=== PATIENT | female | born 1970 | race Caucasian/White ===

== ENCOUNTER 2020-02-22 13:08 | Emergency (ER) | payer BC, SELFPAY ==
[2020-02-22 13:26] VITALS: BP 149/58; PULSE 69; RESP 14; TEMP 36.4; O2SAT 100
--- NOTE | 2020-02-22 15:06 | ED.GENADULT ---
HPI - General Adult General Chief complaint: Wound/Laceration Stated complaint: lac Time Seen by Provider: 02/22/20 13:16 Source: patient Mode of arrival: ambulatory Limitations: no limitations History of Present Illness HPI narrative: Patient is a 49-year-old female who presents to emergency department for evaluation of right hand pain noting that she cut the hand just prior to arrival with a sharp knife patient notes mild aching pain worse with activity and movement. Patient notes immunizations to be up-to-date specifically tetanus. Injury occurred just prior to arrival Related Data Home Medications Medication Instructions Recorded Confirmed No Home Medications 02/22/20 02/22/20 Allergies Allergy/AdvReac Type Severity Reaction Status Date / Time No Known Allergies Allergy Unknown Verified 02/22/20 13:28 Review of Systems Review of Systems: Narrative: CONSTITUTIONAL: Denies fever, chills, or sweats. SKIN: Denies true centimeter superficial linear laceration right hand dorsal surface along the base of the first digit MUSCULOSKELETAL: Denies back pain, joint pain, or myalgia. NEUROLOGIC: Denies numbness, tingling PMFSH Family History Family History (Updated 03/10/16 @ 23:21 by DOCTOR UNKNOWN) Mother Patient's mother is in good health Father Patient's father is in good health Sibling Patient's sister is in good health Social History Social History Smoking status: Never smoker Alcohol intake: never Gender identity (if verbalized by the patient): Female Exam Narrative: Exam Narrative: GENERAL: Well-appearing, well-nourished, and in no acute distress. HEAD: Normocephalic, atraumatic. EYES: PERRLA and EOMI. ENT: Nares clear, no rhinorrhea or epistaxis. Mucous membranes moist. EXTREMITIES: Normal range of motion. No edema. SKIN: Warm, dry, no rash. 2 cm superficial linear laceration dorsal surface right hand along the first digit NEURO: No focal deficits. Alert and oriented x3. Neurovascularly intact PSYCH: Normal mood and affect. Course Course Emergency Course: Patient in the room aware of case findings treatment plan and diagnosis agreeing to follow-up as directed or to return if symptoms worsen or concerns eye closure in the emergency department Vital Signs Vital signs: Vital Signs Temperature 97.6 F 02/22/20 13:26 Pulse Rate 69 07/12/20 13:26 Respiratory Rate 14 02/22/20 13:26 Blood Pressure 149/58 H 02/22/20 13:26 Pulse Oximetry 100 02/22/20 13:26 Temperature 97.6 F 02/22/20 13:26 Pulse Rate 69 02/22/20 13:26 Respiratory Rate 14 02/22/20 13:26 Blood Pressure 149/58 H 02/22/20 13:26 Pulse Oximetry 100 02/22/20 13:26 Procedures Laceration Laceration 1: Date: 02/22/20 Time: 15:10 Site: upper extremity Size (cm): 2 Description: linear Depth: simple, single layer Local Anesthetic: lidocaine 1% Pre-repair: wound explored, irrigated and irrigated extensively ====== Skin Level ====== Skin layer closed with: nylon Size (cm): 5-0 Number of sutures: 4 ====== Subcutaneous Layer ====== ====== Muscle Layer ====== ====== Tendon Layer ====== Dressing: Intact antibiotic ointment nonadhesive 4 x 4 and Coban placed post procedure Medical Decision Making MDM Narrative Medical decision making narrative: Patients injury or pain is consistent with musculoskeletal etiology. No signs of neurological or vascular compromise on exam. Compartments and tisues are soft without signs of compartment syndrome. Pain is felt appropriate for further evaluation on an outpatient basis. Vital Signs Vital Signs: Vital Signs Temperature 97.6 F 02/22/20 13:26 Pulse Rate 69 02/22/20 13:26 Respiratory Rate 14 02/22/20 13:26 Blood Pressure 149/58 H 02/22/20 13:26 Pulse Oximetry 100 02/22/20 13:26 Temperat
[2020-02-22 15:29] VITALS: BP 160/93; PULSE 91; RESP 18; O2SAT 95
== END 2020-02-22 15:30 | disposition home or self-care (01) ==
PROVIDERS: Emergency Provider Emergency Medicine
DX: S61.411A Laceration without foreign body of right hand, initial encounter (principal); W26.0XXA Contact with knife, initial encounter
CPT/HCPCS: 12001; 99282

== ENCOUNTER 2021-01-19 10:59 | Outpatient (CLI) | payer BC, SELFPAY ==
--- NOTE | 2021-01-19 11:21 | ECG_ITS ---
Measurements Intervals [place] Rate: 71 P: 67 [place]: 123 QRS: 30 QRSD: 85 T: 32 QT: 385 QTc: 420 Interpretive Statements SINUS RHYTHM NORMAL ECG Electronically Signed On 01-19-2021 12:12:26 CDT by Karthikeyan Durán D.O.
[2021-01-19 11:26] LABS: Hematocrit 40.2 % (37.0-47.0); Hemoglobin 13.9 g/dL (12.0-15.0)
[2021-01-19 11:31] LABS: Urine Cotinine NEGATIVE
[2021-01-19 11:43] LABS: Hemoglobin A1C 5.1 % (<5.7)
[2021-01-19 11:46] LABS: Albumin Level 4.8 g/dL (3.5-5.1); Estimated Glomerular Filt Rate > 60; Glucose 96 mg/dL (65-105)
== END 2021-01-19 11:00 | disposition home or self-care (01) ==
PROVIDERS: Visit Provider Orthopaedic Surgery
DX: M16.11 Unilateral primary osteoarthritis, right hip (principal); Z01.818 Encounter for other preprocedural examination
CPT/HCPCS: 80307; 82040; 82565; 82947; 83036; 85014; 85018; 93005

== ENCOUNTER 2021-03-14 12:44 | Outpatient (CLI) | payer BC, SELFPAY ==
[2021-03-14 08:47] LABS: Basophils Absolute Auto 0.1 K/mm3 (0.0-0.1); Basophils Percent Auto 1.2 % (0.2-1.2); Eosinophils Absolute Auto 0.2 K/mm3 (0-0.3); Eosinophils Percent Auto 3.2 % (0-4.4); Hemoglobin 14.2 g/dL (12.0-15.0); Immature Granulocyte Absolute 0.03 K/mm3 (0.00-0.031); Immature Granulocyte Percent A 0.6 % (0-0.5); Lymphocytes Absolute Auto 1.54 K/mm3 (0.9-3.2); Lymphocytes Percent Auto 30.9 % (18.3-44.2); Mean Corpuscular HGB Conc 34.6 g/dl (32-36); Mean Corpuscular Hemoglobin 30.2 pg (26-34); Mean Corpuscular Volume 87.2 fl (80-100); Mean Platelet Volume 9.7 fl (7.4-10.4); Monocytes Absolute Auto 0.4 K/mm3 (0.1-0.6); Neutrophils Absolute Auto 2.8 K/mm3 (1.3-6.7); Neutrophils Percent Auto 56.1 % (45.5-73.1); Platelet Count Result 249 k/mm3 (150-375); Red Cell Distribution Width 11.9 % (11.5-14.5)
[2021-03-14 08:57] LABS: Albumin Level 4.6 g/dL (3.5-5.1); Estimated Glomerular Filt Rate > 60; Glucose 97 mg/dL (65-110)
[2021-03-14 09:25] LABS: Urine Cotinine NEGATIVE
== END 2021-03-14 12:45 | disposition home or self-care (01) ==
LOC: ANHSURGERY 04-22 12:44
PROVIDERS: Visit Provider Orthopaedic Surgery
DX: Z01.812 Encounter for preprocedural laboratory examination (principal); M16.11 Unilateral primary osteoarthritis, right hip; Z51.81 Encounter for therapeutic drug level monitoring; Z79.899 Other long term (current) drug therapy
CPT/HCPCS: 80307; 82040; 82565; 82947; 85025; 87081

== ENCOUNTER → 2021-03-29 04:54 | Outpatient (CLI) | payer BC, SELFPAY ==
[2021-03-29 21:10] LABS: SARS-CoV-2 RNA PCR Negative
== END ==
PROVIDERS: Visit Provider Orthopaedic Surgery
DX: Z01.812 Encounter for preprocedural laboratory examination (principal); Z20.822 Contact with and (suspected) exposure to COVID-19
CPT/HCPCS: C9803; U0003; U0005

== ENCOUNTER 2021-04-01 05:01 | Day surgery (SDC) | payer BC, SELFPAY ==
[2021-03-14 08:08] VITALS: BP 156/108; PULSE 78; RESP 18; TEMP 36.5; O2SAT 99; BMI 25.9
[2021-03-14 08:10] VITALS: BP 158/90
[2021-03-14 08:30] VITALS: BP 160/100
--- NOTE | 2021-03-31 13:44 | WPDANESEPPF ---
Anes - Initial Pre Proc Eval Procedure: Operation Date: 04/01/21 07:30 Proposed Procedures p Right Total Hip Arthroplasty - Harish Husain MD Date/Time: 03/31/21 13:44 Surgeon: Harish Husain MD Pre Op Diagnosis: primary OA right hip Patient Data Age: 50 Gender: F Height: 1.78 m Weight: 82.1 kg Last Vital Signs Temp 36.5 C 03/14/21 08:08 Pulse 78 03/14/21 08:08 Resp 18 03/14/21 08:08 BP 160/100 H 03/14/21 08:30 Pulse Ox 99 03/14/21 08:08 Allergies Allergy/AdvReac Type Severity Reaction Status Date / Time No Known Allergies Allergy Unknown Verified 04/01/21 06:22 Home Medications Medication Instructions Recorded Confirmed Type ibuprofen [Ibuprin] 400 mg PO BID PRN 03/14/21 04/01/21 History tramadol 50 mg tablet 50 mg PO Q6H PRN #30 tablet 03/14/21 04/01/21 Rx Patient hx anesthesia problems: none Family hx anesthesia problems: none PMFSH Past Medical History Medical History (Updated 03/31/21 @ 13:44 by Bill Schwartz MD) Arthritis of right hip Asthma Migraine Family History Family History Mother Patient's mother is in good health Father Patient's father is in good health Sibling Patient's sister is in good health Social History Social History Smoking status: Never smoker Second hand tobacco smoke exposure: No Alcohol intake: current Drinks per week: 2 Substance use: never Substance use type: does not use Living arrangements: with family Gender identity (if verbalized by the patient): Female Spiritual care concerns: No Anes - Eval Final PreProcedure Day of Procedure 03/31/21 13:44 Patient weight: overweight Heart: regular rate and rhythm Lungs: clear to auscultation and normal air movement Airway: Mallampati scale class II Neurological: alert and oriented Last oral intake: >/= 8 hours ASA classification: II Emergent: no Anesthetic plan: proceed Anesthesia type and monitoring: general LMA and ETT Informed Consent: The patient's anesthetic plan and its attendant risks and benefits were discussed with the patient/family/POA. Questions were solicited and answers provided to the satisfaction of the patient/family/POA.
[2021-04-01] VITALS (13 sets, daily range): BP systolic 120–158; BP diastolic 69–104; PULSE 75–99; RESP 10–18; TEMP 35.8–36.5; O2SAT 97–100
--- NOTE | ~2021-04-01 | XR_ITS ---
EXAMINATION: XR hip RT min 2V DATE: 04/01/2021 10:19 INDICATION: Right hip arthroplasty. Postop. TECHNIQUE: 2 views of right hip were obtained. COMPARISON: Right hip radiographs 05/14/2021 FINDINGS: There is a total right hip arthroplasty in near-anatomic alignment. No fracture. IMPRESSION: 1. Total right hip arthroplasty in near-anatomic alignment. Reviewed, dictated and finalized at location B.
[2021-04-01] MEDS: ACETAMINOPHEN 500 MG TABLET 1000 MG PO (06:26)
[2021-04-01] MEDS: LACTATED RINGERS 1,000 ML 30 ML IV CONT ×2 (06:44→10:07)
[2021-04-01] MEDS: TRANEXAMIC ACID 1,000MG/ISO100 1,000 MG/100 ML BAG 200 MG IVPB (07:17)
--- NOTE | 2021-04-01 07:20 | WPDHPUPDATE1 ---
History and Physical Update Update Date/Time: 04/01/21 07:20 History and Physical has been reviewed, including an updated exam of the patient. There are NO changes in the patient's condition. Risks, benefits, and alternatives have been discussed and questions answered. Patient agrees to proceed with procedure.
[2021-04-01] MEDS: ceFAZolin 2 GM/D5W 50 ML 2 GM/50 ML BAG IVPB ×3 (07:32→22:51)
[2021-04-01] MEDS: fentaNYL CITRATE INJ (*CRX) 100 MCG/2 ML VIAL 25 MCG IV PUSH ×8 (10:28→11:04)
[2021-04-01 11:55] LABS: Hematocrit 36.3 % (37.0-47.0); Hemoglobin 12.2 g/dL (12.0-15.0)
--- NOTE | 2021-04-01 12:19 | ADMGEN ---
This patient, Noemy San, was admitted to 2 Medical Room 259-. Patient/family oriented to hospital policies and general routines including ID bracelet, bed and alarms, visiting hours, pain management, procedures, bathroom and other care routines, personal items, smoking policy, room service/diet, and visiting hours. Information on how to activate the Rapid Response Team has been discussed. Patient/Family are encouraged to report perceived risks to care and to ask questions if they do not understand what they are told or what they should do.
[2021-04-01] MEDS: CYCLOBENZAPRINE HCL 10 MG TABLET PO (12:30)
[2021-04-01] MEDS: oxyCODONE HCL (*CRX) 5 MG TAB IR PO (14:40)
--- NOTE | 2021-04-01 15:02 | W.PM.PROC2 ---
Procedure Note - Detailed Date of Procedure 04/01/21 Pre-op Diagnosis primary OA right hip Post-op Diagnosis same Procedure Performed Total hip arthroplasty, right. Surgeon Harish Husain MD Software Engineer Advisor Jane Noriega PA-C Anesthesia general Findings Good bone quality. 8mm posterior-inferior degenerative acetabular cyst bone grafted. [place] femoral version approximately 15 degrees. Femur placed at shinnecock version. Acetabular component approximately 20-25 degrees. No impingement with neutral liner. Description of Procedure OPERATIVE DETAILS: The patient was given preoperative antibiotics. A general anesthetic was administered. The patient was carefully placed in the lateral decubitus position on the PEG board. The shoulders and hips were carefully positioned for component and leg length positioning reference. The hip was prepped and draped in the usual sterile fashion. A longitudinal incision was created over the posterior aspect of the greater trochanter. Careful dissection was brought down through the deep fascia with electrocautery. A minimally invasive optimized posterior approach to the hip was performed. The short external rotators and capsule were taken down in an L-shaped capsulotomy. The tissue was tagged for later repair using number 2 high strength suture. The femoral neck was measured and taken in situ. The femoral head was removed. The acetabulum was carefully exposed. The inferior capsule was released. The labrum was resected. The acetabulum was sequentially reamed the intended cup size. The cup was impacted into position with excellent press-fit. Trial liner placed. Typical anatomic landmarks, including the bony contact points as well as the inferior transverse acetabular ligament were used to confirm cup positioning with preoperative templating. Attention was turned to the femur, which was carefully exposed. The hip was reamed and then broached sequentially. Excellent press-fit was obtained with the broach. The hip was trialed. Measurements were utilized, including the lesser trochanter as well as the center of the femoral head and the tip of the trochanter, and excellent assessment of the offset and leg lengths were confirmed. The real component was impacted into position. Trialing confirmed appropriate leg length and offset with soft tissue balancing as well apparent feel of the leg, both at the knee and the heel. Soft tissues were assessed using the the iliotibial band. Reduction of the posterior capsule and external rotators were also used as a secondary assessment. The hip was copiously irrigated with pulsatile lavage antibiotic solution periodically throughout the procedure. The real components were then assembled and reduced. The hip was stable throughout typical maneuvers, including extension, external rotation to 70 degrees, the position of sleep as well as flexion to 90 degrees with internal rotation past 35 degrees. The shake test confirmed stability without impingement. The short external rotators and capsule were repaired back to the posterior trochanter through drill holes. The deep fascia was repaired with running number 2 Quill suture, followed by 0 Stratafix suture and 2-0 Stratafix suture in the dermis. Steri-Strips were placed on the skin, followed by a sterile silver occlusive dressing. There were no complications. Meticulous hemostasis was maintained with the AquaMantys device. The patient was brought to the recovery room in stable condition. There were no complications. Implants The Accolade II hip stem, 127 degree size 4 , was utilized with excellent press-fit. The 50 mm tritanium 2 acetabular component was impacted with excellent press-fit stability. The +4 , 32 mm Biolox ceramic femoral head was utilized. Estimated Blood Loss -350.0 Drains No Pathology none sent Complications No immediate complications Condition stable Disposition PACU
[2021-04-01] MEDS: MELOXICAM 7.5 MG TABLET PO (17:21)
[2021-04-01] MEDS: ASPIRIN 81 MG ENTERIC TABLET PO (17:21)
[2021-04-01] MEDS: DOCUSATE SODIUM 100 MG CAPSULE PO (17:21)
[2021-04-01] MEDS: FAMOTIDINE 20 MG TABLET PO (20:22)
[2021-04-02 00:44] VITALS: BP 128/68; PULSE 80; RESP 16; TEMP 36.7; O2SAT 100
[2021-04-02 05:11] VITALS: BP 134/76; PULSE 87; RESP 16; TEMP 36.4; O2SAT 100
[2021-04-02] MEDS: oxyCODONE HCL (*CRX) 5 MG TAB IR PO (05:38)
[2021-04-02] MEDS: ceFAZolin 2 GM/D5W 50 ML 2 GM/50 ML BAG IVPB (06:09)
[2021-04-02 06:23] LABS: Basophils Percent Auto 0.4 % (0.2-1.2); Eosinophils Percent Auto 0.2 % (0-4.4); Hematocrit 33.1 % (37.0-47.0); Hemoglobin 10.9 g/dL (12.0-15.0); Immature Granulocyte Absolute 0.05 K/mm3 (0.00-0.031); Immature Granulocyte Percent A 0.5 % (0-0.5); Lymphocytes Absolute Auto 2.02 K/mm3 (0.9-3.2); Lymphocytes Percent Auto 22.1 % (18.3-44.2); Mean Corpuscular HGB Conc 32.9 g/dl (32-36); Mean Corpuscular Hemoglobin 29.1 pg (26-34); Mean Corpuscular Volume 88.5 fl (80-100); Mean Platelet Volume 10.5 fl (7.4-10.4); Monocytes Absolute Auto 0.8 K/mm3 (0.1-0.6); Monocytes Percent Auto 8.5 % (2.6-8.5); Neutrophils Absolute Auto 6.2 K/mm3 (1.3-6.7); Neutrophils Percent Auto 68.3 % (45.5-73.1); Platelet Count Result 212 k/mm3 (150-375); Red Blood Count 3.74 M/mm3 (4.2-5.4); Red Cell Distribution Width 11.8 % (11.5-14.5); White Blood Count 9.2 K/mm3 (4.5-10.0)
[2021-04-02 06:34] LABS: Anion Gap 6 mmol/L (8-16); Blood Urea Nitrogen 11 mg/dL (7-17); Calcium 8.9 mg/dL (8.4-10.2); Carbon Dioxide 27 mmol/L (22-30); Chloride 104 mmol/L (98-107); Estimated CRCL calculation 90 ml/min; Estimated Glomerular Filt Rate > 60; Glucose 99 mg/dL (65-110); Potassium 4.3 mmol/L (3.4-5.0); Sodium 137 mmol/L (137-145)
[2021-04-02] MEDS: ASPIRIN 81 MG ENTERIC TABLET PO (08:07)
[2021-04-02] MEDS: MELOXICAM 7.5 MG TABLET PO (08:07)
[2021-04-02] MEDS: DOCUSATE SODIUM 100 MG CAPSULE PO (08:07)
[2021-04-02] MEDS: FAMOTIDINE 20 MG TABLET PO (08:07)
[2021-04-02 09:50] VITALS: BP 123/79; PULSE 82; RESP 16; TEMP 36.2; O2SAT 100
--- NOTE | 2021-04-02 10:58 | PM.DS ---
DS: Admitting Diagnosis Admitting Diagnosis OA Right hip DS: Discharge Diagnosis Discharge Diagnosis (1) Status post total hip replacement, right: Code(s): Z96.641 - Presence of right artificial hip joint Status: Acute Assessment and Plan: Postop day 1: Right total hip arthroplasty. Patient tolerated procedure well. No complications. Pain manageable with pain medication. No numbness or tingling. We had a lengthy discussion regarding postoperative wound care, limitations, expectations, and exercises. Patient shows good understanding. She has had initial physical therapy and is tolerating it well. DVT prophylaxis: 81 mg baby aspirin b.i.d. for 14 days. Short frequent walks. Pain medication: Percocet. Ibuprofen. Patient has followup appointment with Dr. Husain in 3 weeks. DS: Summary Hospital Course Reason for hospitalization: Total hip arthroplasty Hospital Course: Patient tolerated procedure well. Has had initial PT/OT and made good progress. Status at Discharge Functional status at discharge: uses cane/walker Overall status at discharge: patient is progressing back to baseline Time Spent with Patient Time attestation: Total time spent providing and/or coordinating discharge services: 45 minutes Exam Narrative: Overweight 50 y/o female. Resting comfortably in bed. Wearing compression socks bilaterally. Dressing dry and intact with no drainage. Moderate swelling. No ecchymosis. No erythema. No hematoma. Range of motion limited due to pain. Calf nontender. Thigh nontender. Neurologic status intact. No varicosities. Distal pulses palpable. DS: Data Data Completed and Pending Labs on day of discharge: Labs from last 24 hours 04/02/21 04/02/21 04/01/21 05:32 05:32 11:41 WBC 9.2 RBC 3.74 L Hgb 10.9 L 12.2 Hct 33.1 L 36.3 L MCV 88.5 MCH 29.1 MCHC 32.9 RDW 11.8 Plt Count 212 MPV 10.5 H Immature Gran % (Auto) 0.5 Neut % (Auto) 68.3 Lymph % (Auto) 22.1 [place] % (Auto) 8.5 Eos % (Auto) 0.2 Baso % (Auto) 0.4 Lymph # (Auto) 2.02 [place] # (Auto) 0.8 H Eos # (Auto) 0.0 Baso # (Auto) 0.0 Abs Immat Gran (auto) 0.05 H Absolute Neuts (auto) 6.2 Absolute Nucleated RBC 0.0 Nucleated RBC % 0.0 Sodium 137 Potassium 4.3 Chloride 104 Carbon Dioxide 27 Anion Gap 6 L BUN 11 Creatinine 0.70 Estim Creat Clear Calc 90 Estimated GFR > 60 Glucose 99 Calcium 8.9 Blood Type Antibody Screen 04/01/21 06:19 WBC RBC Hgb Hct MCV MCH MCHC RDW Plt Count MPV Immature Gran % (Auto) Neut % (Auto) Lymph % (Auto) [place] % (Auto) Eos % (Auto) Baso % (Auto) Lymph # (Auto) [place] # (Auto) Eos # (Auto) Baso # (Auto) Abs Immat Gran (auto) Absolute Neuts (auto) Absolute Nucleated RBC Nucleated RBC % Sodium Potassium Chloride Carbon Dioxide Anion Gap BUN Creatinine Estim Creat Clear Calc Estimated GFR Glucose Calcium Blood Type O Negative Antibody Screen Negative Discharge Plan Discharge Patient Disposition: Home, Self-Care Discharge Instructions: See instruction sheet Stand Alone Forms: General Discharge Instructions Follow-up/Referrals: Jane Noriega PA [Physician Band Bias Machine Operator] - Discharge Medications: New aspirin 81 mg tablet,delayed release (DR/EC) 81 mg PO BID 14 Days Qty: 28 RF: 0 oxycodone-acetaminophen 5-325 mg tablet 1 - 2 tablet PO Q4-6H MDD 6 PRN (Reason: pain) Qty: 30 RF: 0 Continued tramadol 50 mg tablet 50 mg PO Q6H PRN (Reason: pain) Qty: 30 RF: 0 ibuprofen 200 mg Tablet 400 mg PO BID PRN (Reason: Pain) RF: 0
== END 2021-04-02 12:00 | disposition home or self-care (01) ==
LOC: ANHSURGERY 06:02 → ANH2MED 11:31
PROVIDERS: Physician Assistant Surgical; Visit Provider Orthopaedic Surgery
PROC: (CPT 27130; principal; 2021-04-01 07:30)
DX: M16.11 Unilateral primary osteoarthritis, right hip (principal); J45.909 Unspecified asthma, uncomplicated
CPT/HCPCS: 27130; 36415; 73502; 80048; 85014; 85018; 85025; 86850; 86900; 86901; 97110; 97116; 97161; 97165; 97530; A9270; C1776; J0131; J0171; J0690; J1100; J1170; J1885; J2250; J2270; J2405; J2704; J2710; J2795; J3010; J7120

== ENCOUNTER 2021-05-09 16:46 | Emergency (ER) | payer BC, SELFPAY ==
--- NOTE | ~2021-05-09 | XR_ITS ---
EXAMINATION: XR chest 1V portable INDICATION: Shortness of breath and cough TECHNIQUE: Portable AP chest at 1726 hours COMPARISON: None available FINDINGS: The lungs are free of acute opacities. There is no pleural effusion or pneumothorax. The ca rdiomediastinal silhouette is normal. The visualized bones and soft tissues are unremarkable. IMPRESSION: 1. No acute cardiopulmonary abnormality. Reviewed, dictated and finalized at location A.
--- NOTE | 2021-05-09 17:18 | ECG_ITS ---
Measurements Intervals [place] Rate: 85 P: 56 HI: 126 QRS: 5 QRSD: 82 T: 38 QT: 362 QTc: 431 Interpretive Statements SINUS RHYTHM NORMAL ECG Electronically Signed On 05-09-2021 20:11:21 CDT by Karthikeyan Durán D.O.
[2021-05-09 17:20] VITALS: BP 164/106; PULSE 105; RESP 14; TEMP 36.8; O2SAT 99
[2021-05-09 17:50] LABS: Basophils Percent Auto 0.3 % (0.2-1.2); Eosinophils Percent Auto 0.3 % (0-4.4); Hematocrit 40.5 % (37.0-47.0); Immature Granulocyte Absolute 0.02 K/mm3 (0.00-0.031); Immature Granulocyte Percent A 0.6 % (0-0.5); Lymphocytes Absolute Auto 1.05 K/mm3 (0.9-3.2); Lymphocytes Percent Auto 31.8 % (18.3-44.2); Mean Corpuscular HGB Conc 34.6 g/dl (32-36); Mean Corpuscular Hemoglobin 30.4 pg (26-34); Mean Corpuscular Volume 87.9 fl (80-100); Mean Platelet Volume 9.9 fl (7.4-10.4); Monocytes Absolute Auto 0.4 K/mm3 (0.1-0.6); Monocytes Percent Auto 12.1 % (2.6-8.5); Neutrophils Absolute Auto 1.8 K/mm3 (1.3-6.7); Neutrophils Percent Auto 54.9 % (45.5-73.1); Platelet Count Result 186 k/mm3 (150-375); Red Blood Count 4.61 M/mm3 (4.2-5.4); Red Cell Distribution Width 12.4 % (11.5-14.5); White Blood Count 3.3 K/mm3 (4.5-10.0)
[2021-05-09 17:56] LABS: Anion Gap 12 mmol/L (8-16); Blood Urea Nitrogen 8 mg/dL (7-17); Calcium 9.2 mg/dL (8.4-10.2); Carbon Dioxide 27 mmol/L (22-30); Chloride 101 mmol/L (98-107); Estimated CRCL calculation 90 ml/min; Estimated Glomerular Filt Rate > 60; Glucose 91 mg/dL (65-110); Sodium 140 mmol/L (137-145)
[2021-05-09 19:59] VITALS: BP 157/96; PULSE 92; TEMP 37.2; O2SAT 100
[2021-05-09 21:10] VITALS: BP 174/103; PULSE 89; RESP 18; O2SAT 100
--- NOTE | 2021-05-09 21:13 | ED.URI ---
HPI - URI/Sore Throat General Chief Complaint: Upper Respiratory Infection Stated Complaint: COVID Positive, Wants ED Evaluation Time Seen by Provider: 05/09/21 20:55 Source: patient and RN notes reviewed Mode of arrival: ambulatory Limitations: no limitations History of Present Illness HPI Narrative: This is a 50 year old female who presents for evaluation of COVID symptoms. Patient reports she developed symptoms 1 week ago and her tested positive 1 week ago. Her symptoms include body ache, sinus congestion, headache. She tested negative on Sunday but she tested positive 2 days ago. She reports intermittent pain in back, chest and right hip . She denies shortness of breath, nausea, vomiting or diarrhea . She reports she does not have a primary care physician so she came to ER. Her 's PCP ordered him monoclonal antibody infusion so she came to ER to get same. She had right hip replacement 1 month ago but she denies any issues concerning for DVT. Related Data Home Medications Medication Instructions Recorded Confirmed ibuprofen 400 mg PO BID PRN 03/14/21 04/22/21 acetaminophen 500 mg PO Q6H PRN 05/09/21 Allergies Allergy/AdvReac Type Severity Reaction Status Date / Time bee venom protein (honey bee) Allergy Swelling Verified 05/09/21 21:16 [bees] of the Eye cat dander Allergy Swelling Verified 05/09/21 21:16 of the Eye dog dander Allergy Swelling Verified 05/09/21 21:16 of the Eye pollen extracts Allergy Swelling Verified 05/09/21 21:16 of the Eye Review of Systems Review of Systems: All systems reviewed & are unremarkable except as noted in HPI and below PMFSH Past Medical History Medical History (Updated 05/09/21 @ 22:37 by Janeen Holley MD) Arthritis of right hip Asthma Migraine Surgical History Surgical History (Updated 05/09/21 @ 21:18 by Janeen Holley MD) Status post total hip replacement, right Family History Family History Mother Patient's mother is in good health Father Cerebrovascular accident Sibling Patient's sister is in good health Social History Social History Second hand tobacco smoke exposure: No Alcohol intake: current Drinks per week: 1 Substance use: never Substance use type: does not use Gender identity (if verbalized by the patient): Female Spiritual care concerns: No Exam Const: General: no acute distress and alert Orientation/consciousness: patient oriented x3 Eyes: EOM: EOMs intact bilaterally Chest: Chest palpation & inspection: normal inspection of the chest Resp: Effort & Inspection: normal respiratory effort and no retractions Auscultation: clear to auscultation bilaterally Cardio: Rate: regular rate Rhythm: regular rhythm Heart sounds: no murmurs GI: GI Palp: Yes Soft to palpation, No Tenderness to palpation present (GI) and No Guarding due to palpation present (GI) Auscultation: normal bowel sounds Back/Spine/Pelvis: Back: no CVA tenderness Skin: General skin exam: normal color Rashes: no rashes Neuro: General: patient oriented x3, moves all extremities and CN's II-XI intact bilaterally Psych: Mental Status: mental status grossly normal Affect: normal affect Course Reevaluation(s) Reevaluation #1: Nursing staff states they went to draw d dimer on patient and she was gone. she seems to have eloped. I was awaiting d dimer due to recent covid with recent hip replacement. Date: 05/09/21 Time: 22:35 Vital Signs Vital signs: Vital Signs Temperature 98.3 F 05/09/21 17:20 Pulse Rate 105 H 05/09/21 17:20 Respiratory Rate 14 05/09/21 17:20 Blood Pressure 164/106 H 05/09/21 17:20 Pulse Oximetry 99 05/09/21 17:20 Temperature 98.9 F 05/09/21 19:59 Pulse Rate 89 05/09/21 21:10 Respiratory Rate 18 05/09/21 21:10 Blood Pressure 17
[2021-05-09 21:48] LABS: CRP < 0.5 mg/dL (<1.0)
[2021-05-09 21:57] LABS: Troponin I < 0.012 ng/mL (0.000-0.034)
== END 2021-05-09 22:35 | disposition left against medical advice (07) ==
PROVIDERS: Emergency Medicine; Emergency Provider General Practice
DX: U07.1 COVID-19 (principal); J45.909 Unspecified asthma, uncomplicated; M16.11 Unilateral primary osteoarthritis, right hip; Z96.641 Presence of right artificial hip joint
CPT/HCPCS: 36415; 71045; 80048; 84484; 85025; 86140; 93005; 99284

== ENCOUNTER 2021-05-13 09:00 | Outpatient (RCR) | payer BC, SELFPAY ==
[2021-05-13] MEDS: ACETAMINOPHEN 325 MG TABLET 650 MG PO (13:09)
[2021-05-13] MEDS: diphenhydrAMINE HCl CAP 25 MG CAPSULE PO (13:09)
[2021-05-13] MEDS: FAMOTIDINE 20 MG TABLET PO (13:09)
[2021-05-13 13:28] VITALS: BP 132/85; PULSE 96; RESP 20; TEMP 37.4; O2SAT 98
--- NOTE | 2021-05-13 13:41 | PC.NURSE ---
Patient has not had any COVID vaccines at this point in time.
[2021-05-13 14:49] VITALS: BP 128/78; PULSE 92; RESP 18; TEMP 37.1; O2SAT 98
--- NOTE | 2021-05-16 08:29 | PC.NURSE ---
Called patient to follow-up regarding antibody infusion on 05/13/21. Patient states they are afebrile for 2 days now and feeling much better. She denies any side effects at this time.
== END 2021-05-13 16:30 | disposition home or self-care (01) ==
LOC: AMCINF 09:00
PROVIDERS: PCP Family Medicine; Referring Provider Family Medicine; Visit Provider Internal Medicine Hematology & Oncology
DX: Z23 Encounter for immunization (principal); U07.1 COVID-19
CPT/HCPCS: A9270; J7050; M0243; Q0244

== ENCOUNTER 2021-11-23 07:23 | Outpatient (CLI) | payer OTHER, SELFPAY ==
--- NOTE | 2021-11-30 12:55 | WPDHOMESLEEP ---
Sleep Study - Home Unattended Date of Study: 11/23/21 Ordering Provider: Jamal San MD Interpreting Provider: Lynda Colbert, DO Home Sleep Study Type: Watch PAT Height: 1.78 m Weight: 81.647 kg Body Mass Index: 25.8 Neck Circumference (inches): 14 [place]: 9 Reason for Sleep Study Snoring, multiple nighttime awakenings Sleep History The patient is a 51-year-old female with seasonal allergies, headaches and asthma that had a sleep study ordered by her primary care physicians for evaluation of sleep. The patient states that she snores very loudly and this has been going on for as long as she can remember. She rarely awakens from sleep short of breath. She denies awakening at night with heartburn, belching or cough. She constantly snores loud enough that others complain. She occasionally has trouble sleeping when she has a cold. She occasionally wakes up gasping for air throughout the night. He occasionally has breathing problems at night observed by herself or others. She rarely sweats excessively at night. She occasionally has heart palpitations or irregular heartbeats during the night. He rarely falls asleep during the day but never while driving. She denies sleep paralysis, cataplexy and hypnagogic/ hypnopompic hallucinations. She rarely has nightmares. She frequently remembers her dreams. She frequently has thoughts racing through her mind. She occasionally feels sad or depressed. She frequently has anxiety. She constantly has muscular tension. She denies noticing parts of her body jerk. She rarely kicks during the night. She occasionally has crawling and aching feelings in her legs. She denies having leg pain during the night. She occasionally grinds her teeth during sleep but rarely awakens with morning jaw pain. She is occasionally bothered by pain during the day but rarely awakened by pain during the night. She frequently wakes up feeling stiff in the morning. She rarely wakes up with sore achy muscles. She frequently wakes up with pain in the neck, spine or other joints. She goes to bed between 9 and 10:00 p.m. on weekdays and between 10:00 p.m. and midnight on the weekends. It takes him less than 5 minutes to fall asleep. She wakes up 1-2 times throughout the night. when she awakens, she will use the restroom, get a drink of water and walks if house to check on things. She is able to fall asleep within 5-10 minutes. She wakes up between 5 and 6:00 a.m. on weekdays and between 7 and 9:00 a.m. on the weekends. She typically gets 6-8 hours of sleep per night. She will stay in bed for 10-15 minutes after waking up. She currently lives with her and 2 step sons. She will consume caffeinated beverages within 2 hours of bedtime. She does not engage in physical exercise before bedtime. She will read watch television before falling asleep. She will take naps in the afternoon or the evening and they are refreshing. She drinks 1-2 cups of coffee per day and occasionally has a 32 oz of iced tea. She will drink 1 [place] every evening as well as 2-3 beers per month. She denies tobacco and recreational drug use. [facility] Past Medical History Medical History Arthritis of right hip Asthma BMI 25.0-25.9,adult BMI 27.0-27.9,adult Breast cancer screening by mammogram Colon cancer screening Elevated blood pressure reading in office without diagnosis of hypertension Encounter for wellness examination in adult Essential hypertension (11/02/21) Folic acid deficiency (10/26/21) level low at 5.0 on 10/26/2021. Hypersomnia (~11/02/21) Migraine Mixed hyperlipidemia (10/26/21) total cholesterol 225, HDL 39, triglycerides 246 and LDL 146 on 10/26/2021. Orthopedic aftercare for joint replacement Overweight (BMI 25.0-29.9) Seasonal allergic rhinitis Vitamin B12 deficiency anemia (03/08/12) level low at 293 on 03/08/2012 . Level low at 315 on 10/27/19
[2021-11-30 13:07] VITALS: BMI 25.8
== END 2021-11-24 12:47 | disposition home or self-care (01) ==
LOC: ANHCSM 07:24
PROVIDERS: PCP Family Medicine; Visit Provider Family Medicine
DX: G47.33 Obstructive sleep apnea (adult) (pediatric) (principal)
CPT/HCPCS: 95800

== ENCOUNTER → 2022-02-17 16:40 | Outpatient (CLI) | payer OTHER, SELFPAY ==
--- NOTE | ~2022-02-17 | MM_ITS ---
EXAMINATION: MM screening franc BI w alva HISTORY: Screening mammogram TECHNIQUE: Craniocaudal and mediolateral oblique 3-D tomosynthesis images were obtained and synthetic 2-D images were generated. CAD analysis was submitted and interpreted. COMPARISON: No prior mammogram is available for comparison at this institution. BREAST PARENCHYMAL COMPOSITION: There are scattered areas of fibroglandular density. FINDINGS: There is no evidence of suspicious mass, calcification, or architectural distortion to sugg est malignancy in either breast. There has been no suspicious interval change. IMPRESSION: 1. No mammographic evidence of malignancy. 2. Recommend routine screening mammography in one year. BI-RADS Category 1: Negative Reviewed, dictated and finalized at location A.
== END ==
PROVIDERS: PCP Family Medicine; Visit Provider Family Medicine
DX: Z12.31 Encounter for screening mammogram for malignant neoplasm of breast (principal)
CPT/HCPCS: 77063; 77067